=== PATIENT | female | born 1955 | race Caucasian/White ===

== ENCOUNTER → 2023-05-01 10:51 | Outpatient (REF) | payer OTHER, SELFPAY | LOC: RAD 10:51 | PROVIDERS: ATTENDING PHYSICIAN Internal Medicine Endocrinology, Diabetes & Metabolism; FAMILY PHYSICIAN Family Medicine | DX: E04.2 Nontoxic multinodular goiter (principal) | CPT/HCPCS: 76536 ==

== ENCOUNTER → 2024-02-23 19:46 | Outpatient (REF) | payer OTHER, SELFPAY | LOC: WDC 19:46 | PROVIDERS: ATTENDING PHYSICIAN Obstetrics & Gynecology Gynecology; FAMILY PHYSICIAN Family Medicine | DX: Z12.31 Encounter for screening mammogram for malignant neoplasm of breast (principal); Z12.39 Encounter for other screening for malignant neoplasm of breast | CPT/HCPCS: 77063; 77067 ==

== ENCOUNTER 2024-03-03 10:08 | Emergency (ER) | payer OTHER, SELFPAY ==
[2024-03-03 10:27] VITALS: BP 203/114
--- NOTE | 2024-03-03 10:28 | ED.GENMED ---
ED Provider Triage
<SUSANNE Jarrett Last Filed: 03/03/24 10:30>
-
Patient seen by provider in Triage?: Seen in Triage
68-year-old female not anticoagulated slipped on ice this morning and fell and hit her head on the asphalt. She notes questionable loss of consciousness with wound to the left side of her head with associated nausea.
She is ambulatory. She requires assistance of her significant other to ambulate. Vital signs are stable. CT of the head and cervical spine ordered. Dressing applied to the laceration to the left side of forehead
Medical screening was performed at triage. She warrants further evaluation
History of Present Illness
<SUSANNE Jarrett Last Filed: 03/03/24 10:30>
General
Chief Complaint: Head Injury
Time Seen by Provider: 03/03/24 10:39
<SUSANNE Lucero Last Filed: 03/03/24 13:12>
General
Source: patient
History of Present Illness
History of Present Illness:
68-year-old female presenting to the emergency department for evaluation after she accidentally slipped and fell on the ice this morning sustaining small laceration to the left frontal scalp. No loss of consciousness, no vomiting, no visual changes
no other extremity related injuries. Patient denies any use of anticoagulants. She believes her tetanus is up-to-date.
Past History
<SUSANNE Jarrett Last Filed: 03/03/24 10:30>
Past History
ED Past Medical History: GERD and Other
ED Past Surgical History: None
Social History
Tobacco: Non-smoker
Alcohol: None
Personal:
Living: with family
Employment: Employed
<SUSANNE Lucero Last Filed: 03/03/24 13:12>
Past History
ED Past Medical History: Hypothyroidism
ED Past Surgical History: Orthopedic
Social History
Drug: None
Review of Systems
<Chad Wheatley PA-C - Last Filed: 03/03/24 13:12>
Review of Systems
All Other Systems: ROS reviewed and negative except as documented in HPI and ROS
Phy Exam
<Chad Wheatley PA-C - Last Filed: 03/03/24 13:12>
Physical Exam
Physical Exam:
GENERAL: Alert , in no apparent distress
EYE: conjunctiva clear
Head: see skin exam
NECK: Supple, no cervical midline tenderness
ENT: mmm.
LUNGS: no acute respiratory distress
NEUROLOGICAL: Alert and oriented
SKIN: Warm and dry, approximately 1 cm superficial laceration with arterial spurting to the left frontal scalp with surrounding contusion extending into the upper eyelid and left lateral orbit
MUSCULOSKELETAL: well perfused.
PSYCH: Normal and appropriate interaction.
Scores
<Chad Wheatley PA-C - Last Filed: 03/03/24 13:12>
Heart Failure Risk
Heart Failure Risk Score: Not Applicable
Heart Score for Chest Pain Patients
STEMI patient?: Not applicable
Withdrawal Assessment of Alcohol
Withdrawal Assessment Completed?: Not applicable
Course
<Louis Jerez PA-C - Last Filed: 03/03/24 10:30>
Orders/Labs/Results
Orders:
Orders
03/03/24 10:26
CT Head W/o Iv Contrast Urgent
Comment:
Reason For Exam: fall, head injury
03/03/24 10:28
CT Cervical Spine W/o Iv Contr Urgent
Comment:
Reason For Exam: fall
Vital Signs
Initial and Last Documented VS:
Initial Vital Signs
Temp Pulse Resp BP Pulse Ox
98.1 F 96 18 203/114 98
03/03/24 10:27 03/03/24 10:27 03/03/24 10:27 03/03/24 10:27 03/03/24 10:27
Last Documented Vital Signs
Temp Pulse Resp BP Pulse Ox
98.1 F 96 18 203/114 98
03/03/24 10:27 03/03/24 10:27 03/03/24 10:27 03/03/24 10:27 03/03/24 10:27
<Chad Wheatley PA-C - Last Filed: 03/03/24 13:12>
Orders/Labs/Results
Orders:
Orders
03/03/24 10:26
CT Head W/o Iv Contrast Urgent
Comment:
Reason For Exam: fall, head injury
03/03/24 10:28
CT Cervical Spine W/o Iv Contr Urgent
Comment:
Reason For Exam: fall
Vital Signs
Initial and Last Documented VS:
Initial Vital Signs
Temp Pulse Resp BP Pulse Ox
98.1 F 96 18 203/114 98
03/03/24 10:27 03/03/24 10:27 03/03/24 10:27 03/03/24 10:27 03/03/24 10:27
Last Documented Vital Signs
Temp Pulse Resp BP Pulse Ox
98.1 F 96 18 203/114 98
03/03/24 10:27 03/03/24 10:27 03/03/24 10:27 03/03/24 10:27 03/03/24 10:27
Procedures
<Chad Wheatley PA-C - Last Filed: 03/03/24 13:12>
Laceration Closure
Left Anterior Scalp:
Status of Wound: clean
Size of Wound in cm: 1
Description of Wound Edges: sharp
Preparation: cleaned with saline
Anesthesia: 1% Lidocaine with epi
Revision/Debridement: routine- no revision
Skin Closure Material: 5-0 nylon
Number of sutures: 4
<Chad Wheatley PA-C - Last Filed: 03/03/24 13:12>
MDM/Problems Addressed
Differential Diagnosis Includes:
Abrasion/laceration, contusion, concussion, intracranial bleeding
MDM/Problems Addressed:
68-year-old female presenting to the ER for evaluation following accidental slip and fall on ice. Patient has a 1 cm laceration to the frontal scalp which was repaired as above. Arterial spurting controlled with the sutures as well as had a
pressure dressing placed over top. Patient advised on wound care. Suture removal 5 to 7 days. Head and cervical spine CT ordered did not show any acute intracranial pathology. Patient otherwise stable for discharge home and aware of return
precautions.
<Chad Wheatley PA-C - Last Filed: 03/03/24 13:12>
*Radiology
Radiology exam reviewed: radiology read reviewed
*Pulse Oximetry
Patient hypoxic: no
*Critical Care Note
Total Time (30-74mins, 75-104mins- exclusive of procedures): Not Applicable
ED Attending Note
<Louis Jerez PA-C - Last Filed: 03/03/24 10:30>
-
Portions of this chart may have been created with voice recognition software.� Occasional wrong word or��sound alike� substitutions may have occurred due to the inherent limitations of voice recognition software.
Discharge Plan
Departure
Patient Disposition: Home (Routine Discharge)
Date of Disposition: 03/03/24
Time of Disposition: 11:47
Patient with high blood pressure during this ER visit?: Yes
Discharge Problem:
Fall from slipping on ice, Laceration of scalp
Instructions: Concussion, Adult (DC), Laceration Repair With Stitches (DC)
Prescriptions:
No Action
ibuprofen 800 MG tablet
800 mg PO Q6HPRN PRN (Reason: fever, with food) Qty: 30 0RF
ondansetron 4 MG tablet,disintegrating
4 - 8 mg PO TIDPRN PRN (Reason: NAUSEA) Qty: 12 0RF
Activity Restrictions/Additional Instructions:
Suture removal in 5-7 days
Interventions
Interventions:
*Risk Screen - Suicide Last Done: 03/03/24 10:27
*General Assessment Last Done: 03/03/24 10:27
*Neglect/Abuse Screening Last Done: 03/03/24 10:27
ED- Fall Risk Assessment Last Done: 03/03/24 11:25
*ED COVID-19 Vaccine History Last Done: 03/03/24 11:25
*Nursing Disposition Last Done: 03/03/24 11:50
ED- Neurological Assessment Last Done: 03/03/24 11:25
ED-Skin Assessment Last Done: 03/03/24 11:25
Discharge Date and Time
Discharge Date/Time: 03/03/24 11:50
Print Language: [email or web address]
== END 2024-03-03 11:50 | disposition home or self-care (01) ==
LOC: EMR 10:08
PROVIDERS: EMERGENCY PHYSICIAN Student in an Organized Health Care Education/Training Program; FAMILY PHYSICIAN Family Medicine
DX: S01.01XA Laceration without foreign body of scalp, initial encounter (principal); W00.0XXA Fall on same level due to ice and snow, initial encounter
CPT/HCPCS: 99284; 12001; 70450; 72125

== ENCOUNTER → 2024-12-08 13:17 | Outpatient (REF) | payer OTHER, SELFPAY | LOC: RAD 13:17 | PROVIDERS: ATTENDING PHYSICIAN Internal Medicine Endocrinology, Diabetes & Metabolism; FAMILY PHYSICIAN Family Medicine | DX: E05.90 Thyrotoxicosis, unspecified without thyrotoxic crisis or storm (principal) | CPT/HCPCS: 76536 ==

== ENCOUNTER → 2025-02-23 12:40 | Outpatient (REF) | payer OTHER, SELFPAY | LOC: WDC 12:40 | PROVIDERS: ATTENDING PHYSICIAN Obstetrics & Gynecology Gynecology; FAMILY PHYSICIAN Family Medicine | DX: Z13.820 Encounter for screening for osteoporosis (principal); Z12.31 Encounter for screening mammogram for malignant neoplasm of breast | CPT/HCPCS: 77063; 77067 ==